=== PATIENT | female | born 1960 ===

== ENCOUNTER 2019-04-12 08:16 | Emergency (ER) | payer OTHER ==
[2019-04-12] MEDS ORDERED: NAPROXEN 375 MG TAB PO ONE (10:52)
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
[2019-04-12 12:57] VITALS: BP 117/72
== END 2019-04-12 12:57 | disposition home or self-care (01) ==
LOC: ED 08:16
DX: S16.1XXA Strain of muscle, fascia and tendon at neck level, initial encounter (principal); V49.49XA Driver injured in collision with other motor vehicles in traffic accident, initial encounter; Y93.89 Activity, other specified; Y92.488 Other paved roadways as the place of occurrence of the external cause; Y99.8 Other external cause status
CPT/HCPCS: 72040; 99283